=== PATIENT | female | born 1980 ===

== ENCOUNTER 2019-05-10 15:54 | Emergency (ER) | payer OTHER ==
[~2019-05-10] VITALS: Ht 170.2 cm; Wt 77.1 kg
== END 2019-05-10 18:35 | disposition home or self-care (01) ==
LOC: ER 15:54
DX: D25.9 Leiomyoma of uterus, unspecified (principal); N83.291 Other ovarian cyst, right side; D72.829 Elevated white blood cell count, unspecified; M54.5 Low back pain

== ENCOUNTER 2019-05-15 14:54 | Emergency (ER) | payer OTHER ==
[~2019-05-15] VITALS: Ht 170.2 cm; Wt 72.6 kg
[2019-05-15] MEDS ORDERED: NORFLEX100MG (15:16)
[2019-05-15] MEDS ORDERED: IBU600 MG (15:16)
== END 2019-05-15 17:51 | disposition home or self-care (01) ==
LOC: ER 14:54
DX: M54.5 Low back pain (principal)